=== PATIENT | female | born 1980 | race Caucasian/White ===

== ENCOUNTER 2023-10-29 12:01 | Emergency (ER) | payer OTHER ==
[~2023-10-29] VITALS: Ht 162.6 cm; Wt 54.3 kg
[~2023-10-29 12:01] MED LIST: BENADRYL25 MG PO; LEVOTHROID75 MCG PO; PRENA1 PLUS CO1 EACH PO; SUDAFED30 MG PO; SYNTHROID200 MCG PO
[2023-10-29] MEDS ORDERED: ondansetron HCL 4 MG/2 ML VIAL IV ONE (12:15)
[2023-10-29] MEDS ORDERED: SODIUM CHLORIDE 0.9% 1,000 ML IV ONE (12:15)
[2023-10-29 12:37] LABS: BASOPHILS 0.4 % (0-2); HEMATOCRIT 37.5 % (35.0-50.0); HEMOGLOBIN 13.1 g/dL (12.0-18.0); LYMPHOCYTES 11.4 % (24-44); MCH 30.8 (27-36); MCHC 34.9 g/dl (30-36); MCV 88.1 fl (81-99); MONOCYTES 6.8 % (0-12); NEUTROPHILS 80.4 % (39-80); PLATELET COUNT 430 K/uL (140-440); RBC 4.25 M/ul (4.3-5.7); RDW 12.7 (10.5-15.0)
[2023-10-29 12:52] LABS: ALBUMIN 3.1 g/dL (3.4-5.0); ALBUMIN/GLOBULIN RATIO 0.78 (1.1-2.4); ANION GAP 12.6 (7-21); BILIRUBIN, TOTAL 0.3 ng/dL (0.2-1.0); BUN/CREATININE RATIO 6.89 (6.0-28.6); CALCIUM 8.9 mg/dL (8.5-10.1); CREATININE, SERUM 0.87 mg/dL (0.55-1.02); POTASSIUM 3.6 mmol/L (3.5-5.1); PROTEIN, TOTAL 7.1 g/dL (6.4-8.2)
[2023-10-29 13:00] LABS: BILIRUBIN, URINE NEGATIVE (negative); BLOOD/HGB, URINE NEGATIVE (Negative); KETONE, URINE NEGATIVE (Negative); LEUK ESTERASE, URINE NEGATIVE (negative); NITRITE, URINE NEGATIVE (negative); PH, URINE 5.5 (5-7)
[2023-10-29 13:29] LABS: INFLUENZA B NAA NEGATIVE (NEGATIVE); RESPIRATORY SYNCYTIAL VIR NAA NEGATIVE (NEGATIVE)
[2023-10-29] MEDS ORDERED: ONDANSETRON ODT8 MG PO (13:52)
[2023-10-29] MEDS ORDERED: LOMOTIL TABLET1 EACH PO (13:52)
[2023-10-29 14:05] VITALS: BP 102/65
== END 2023-10-29 14:05 | disposition home or self-care (01) ==
LOC: ED 12:01
PROVIDERS: Family Medicine
DX: K52.9 Noninfective gastroenteritis and colitis, unspecified (principal); N83.202 Unspecified ovarian cyst, left side; Z79.890 Hormone replacement therapy; Z79.899 Other long term (current) drug therapy
CPT/HCPCS: 36415; 74177; 80053; 81003; 83690; 84703; 85025; 87502; 99284-25; J2405; J7030; Q9967; U0002